=== PATIENT | male | born 1975 | race Caucasian/White ===

== ENCOUNTER 2021-10-03 09:57 | Emergency (ER) | payer OTHER ==
[~2021-10-03] VITALS: Ht 185.4 cm; Wt 113.4 kg
[2021-10-03] MEDS ORDERED: LISI20 PO (10:58)
== END 2021-10-03 11:50 | disposition home or self-care (01) ==
LOC: ER 09:57
DX: S61.011A Laceration without foreign body of right thumb without damage to nail, initial encounter (principal); I10 Essential (primary) hypertension; W25.XXXA Contact with sharp glass, initial encounter; Z79.899 Other long term (current) drug therapy
CPT/HCPCS: 12001; 99283-25